=== PATIENT | male | born 1955 | race Caucasian/White ===

== ENCOUNTER 2017-09-12 09:11 | Emergency (ER) | END 2017-09-12 10:53 | disposition home or self-care (01) ==

== ENCOUNTER 2017-09-14 09:51 | Emergency (ER) | END 2017-09-14 10:27 | disposition home or self-care (01) ==

== ENCOUNTER 2017-09-17 11:10 | Emergency (ER) | END 2017-09-17 11:49 | disposition home or self-care (01) ==

== ENCOUNTER 2017-09-19 10:43 | Emergency (ER) | END 2017-09-19 11:00 | disposition home or self-care (01) ==

== ENCOUNTER 2018-05-15 16:27 | Emergency (ER) | END 2018-05-15 18:43 | disposition home or self-care (01) ==